=== PATIENT | female | born 1980 | race Two or more races ===

== ENCOUNTER 2019-03-23 18:06 | Emergency (ER) | payer SELFPAY ==
[2019-03-23 18:22] VITALS: BP 133/82; PULSE 98; TEMP 97.6; BMI 24.5
--- NOTE | 2019-03-23 19:49 | PDOC ---
History of Present Illness - General Chief Complaint: Pain, Acute Stated Complaint: ABD PAIN/NAUSEA Time Seen by Provider: 03/23/19 19:00 - History of Present Illness Initial Comments: Ms. Cameron is a 38 y/o female with no reported PMH presenting today with abdominal pain. Reports that the abdominal pain started around two days ago. Reports that the pain is intermittent. Denies anything makes it better or worse. Describes the pain as starting in the RLQ and radiates to the suprapubic and LLQ areas. Denies fever or chills. Reports nausea without vomiting. Denies diarrhea or constipation. Denies blood in the stool. Denies dysuria/hematuria. Reports that she is able to tolerate PO Denies chest pain/shortness of breath. Denies headache. Reports that she has had the pain for the past several years, and has been seen at hospitals in [place], but is unsure of the diagnosis. She also reports that she was given courses of antibiotics approx. once every 6 months (possibly amoxicillin, but is unsure). SurgHx: denies prior abdominal or pelvic surgeries SocHx: recently moved here from [place] at the end of February LNMP: Feb.15 Past History - Past Medical History Allergies/Adverse Reactions: Allergies Allergy/AdvReac Type Severity Reaction Status Date / Time eggplant Allergy Verified 03/23/19 18:23 DUST MITES Allergy Uncoded 03/23/19 18:23 Home Medications: Ambulatory Orders NK [No Known Home Medication] 03/23/19 COPD: No - Psycho Social/Smoking Cessation Hx Smoking History: Never smoked Hx Alcohol Use: No Drug/Substance Use Hx: No Review of Systems - Review of Systems Comments:: GENERAL/CONSTITUTIONAL: No fever or chills. No weakness._ HEAD, EYES, EARS, NOSE AND THROAT: No change in vision. No change in hearing. No sore throat._ CARDIOVASCULAR: No chest pain or shortness of breath_ RESPIRATORY: Denies cough, hemoptysis_ GASTROINTESTINAL: Reports abdominal pain and nausea. Denies vomiting, diarrhea or constipation._ GENITOURINARY: No dysuria, frequency, or change in urination._ MUSCULOSKELETAL: No joint or muscle swelling or pain. No neck or back pain._ SKIN: No rash_ NEUROLOGIC: No headache, vertigo, loss of consciousness, or change in strength/ sensation._ ENDOCRINE: No increased thirst. No abnormal weight change_ HEMATOLOGIC/LYMPHATIC: No anemia, easy bleeding, or history of blood clots._ ALLERGIC/IMMUNOLOGIC: No hives or skin allergy._ *Physical Exam - Vital Signs Last Vital Signs Temp Pulse Resp BP Pulse Ox 97.6 F 98 H 16 133/82 100 03/23/19 18:20 03/23/19 18:20 03/23/19 18:20 03/23/19 18:20 03/23/19 18:20 - Physical Exam GENERAL: Awake, alert, and oriented to person/place/time, in no acute distress_ HEAD: No signs of trauma, normocephalic, atraumatic _ EYES: PERRLA, EOMI, sclera anicteric, conjunctiva clear_ ENT: Hearing grossly normal, nares patent, oropharynx clear without exudates. No uvular deviation. Moist mucosa_ NECK: Normal ROM, supple, no lymphadenopathy, JVD, or masses_ LUNGS: No distress, speaks in full sentences, clear to auscultation bilaterally _ HEART: Regular rate and rhythm, normal S1 and S2, no murmurs appreciated, peripheral pulses normal and equal bilaterally._ ABDOMEN: Soft, mild TTP RLQ, normoactive bowel sounds. No guarding, no rebound. No masses. Rovsing's sign negative. Iliopsoas sign negative. Obturator sign negative. BACK: No CVA tenderness. EXTREMITIES: Normal inspection, Normal range of motion, no edema. No clubbing or cyanosis_ NEUROLOGICAL: Cranial nerves II through XII grossly intact. Normal speech, normal gait, no focal sensorimotor deficits _ SKIN: Warm, Dry, normal turgor, no rashes or lesions noted_ ED Treatment Course - LABORATORY CBC & Chemistry Diagram: 03/23/19 20:45 03/23/19 20:45 Medical Decision Making - Medical Decision Making 38F presenting with RLQ abdominal pain for the past two days. -cbc, cmp, lipase, serum preg -ua, ucx -tvus 03/23/19 21:33 Labs reviewed. Laboratory Tests 03/23/19 03/23/19 03/23/19 20:45 20:45 20:45 WBC 12.8 H RBC 4.36 Hgb 11.3 Hct 35.9 MCV 82.3 MCH 26.0 MCHC 31.6 L RDW 18.4 H Plt Count 306 MPV 8.1 Absolute Neuts (auto) 10.1 H Neutrophils % 78.7 Lymphocytes % 14.9 Monocytes % 5.6 Eosinophils % 0.1 Basophils % 0.7 Nucleated RBC % 0 Sodium 138 Potassium 4.4 Chloride 106 Carbon Dioxide 25 Anion Gap 7 L BUN 8.4 Creatinine 0.9 Est GFR (CKD-EPI)AfAm 93.35 Est GFR (CKD-EPI)NonAf 80.54 Random Glucose 94 Calcium 9.0 Total Bilirubin 0.2 AST 14 L ALT 17 Alkaline Phosphatase 56 Creatine Kinase Troponin I Total Protein 7.3 Albumin 3.6 Lipase Serum , Qual Urine Color Yellow Urine Appearance Clear Urine pH 7.0 Ur Specific [place] 1.008 L Urine Protein Negative Urine Glucose (UA) Negative Urine Ketones Negative Urine Blood Negative Urine Nitrite Negative Urine Bilirubin Negative Urine Urobilinogen 0.2 Ur Leukocyte Esterase Trace Urine WBC (Auto) 1 Urine RBC (Auto) 1 Urine Casts (Auto) 0 U Epithel Cells (Auto) 5.6 Urine Bacteria (Auto) 56.4 03/23/19 03/23/19 03/23/19 20:45 20:45 20:45 WBC RBC Hgb Hct MCV MCH MCHC RDW Plt Count MPV Absolute Neuts (auto) Neutrophils % Lymphocytes % Monocytes % Eosinophils % Basophils % Nucleated RBC % Sodium Potassium Chloride Carbon Dioxide Anion Gap BUN Creatinine Est GFR (CKD-EPI)AfAm Est GFR (CKD-EPI)NonAf Random Glucose Calcium Total Bilirubin AST ALT Alkaline Phosphatase Creatine Kinase 57 Troponin I < 0.02 Total Protein Albumin Lipase 206 Serum , Qual Positive Urine Color Urine Appearance Urine pH Ur Specific [place] Urine Protein Urine Glucose (UA) Urine Ketones Urine Blood Urine Nitrite Urine Bilirubin Urine Urobilinogen Ur Leukocyte Esterase Urine WBC (Auto) Urine RBC (Auto) Urine Casts (Auto) U Epithel Cells (Auto) Urine Bacteria (Auto) 03/23/19 23:01 TVUS shows single intra-uterine c/w patient's LNMP with no signs of torsion or ectopic . Beta HCG c/w pt LNMP. 03/24/19 00:15 Pt reassessed. Reports minimal right lower pelvic pain. No RLQ pain at rest. Plan to d/c home with OBGYN follow up. Return precautions discussed. All questions answered. Patient expressed understanding and agreement with plan. Per patient request, options and resources were provided. Discharge - Discharge Information Problems reviewed: Yes Clinical Impression/Diagnosis: Qualifiers: Weeks of gestation: less than 8 weeks Qualified Code(s): Z3A.01 - Less than 8 weeks gestation of Condition: Stable Disposition: HOME - Admission No - Follow up/Referral Referrals: Marisa Reyes DO [Staff Physician] - - Patient Discharge Instructions Additional Instructions: Please make a follow up appointment with an OBGYN (a referral has been provided for you here). If you experience any new, worsening, or concerning symptoms, including severe abdominal pain, fever/chills, severe nausea/vomiting and inability to keep down fluids, blood in the vomit or stool, or any other concerns, please return to the emergency department. - Post Discharge Activity
[2019-03-23 20:51] LABS: BASO % 0.7 % (0-2.0); EOS % 0.1 % (0-4.5); HEMATOCRIT 35.9 % (32.4-45.2); HEMOGLOBIN 11.3 GM/dL (10.7-15.3); LYMPH % 14.9 % (8-40); MCHC 31.6 g/dl (32.0-36.0); MEAN CELL VOLUME 82.3 fl (80-96); MEAN PLT VOLUME 8.1 fl (7.5-11.1); MONO % 5.6 % (3.8-10.2); NEUT % 78.7 % (42.8-82.8); PLATELET COUNT 306 K/MM3 (134-434); RBC 4.36 M/mm3 (3.60-5.2); RDW 18.4 % (11.6-15.6); WHITE BLOOD COUNT 12.8 K/mm3 (4.0-10.0)
--- NOTE | 2019-03-23 20:52 | PDOC ---
Documentation entered by Dina Grijalva SCRIBE, acting as scribe for Neo Mccarty MD. Neo Mccarty MD: This documentation has been prepared by the Rudi esqueda Xhesika, SCRIBE, under my direction and personally reviewed by me in its entirety. I confirm that the documentation accurately reflects all work, treatment, procedures, and medical decision making performed by me. Attending Attestation - Resident Resident Name: RiceTimoteo - ED Attending Attestation I have performed the following: I have examined & evaluated the patient, The case was reviewed & discussed with the resident, I agree w/resident's findings & plan, Exceptions are as noted - HPI HPI: 03/23/19 20:09 The patient is a 38 year old female with no significant past medical history who presents to the ED with intermittent RLQ abdominal pain radiating to her suprapubic region for the past couple of months. Pt reports associated nausea but no vomiting. Patient reports she moved from [place] a month ago. The patient denies chest pain, shortness of breath, headache and dizziness. Denies fever, chills, cough, diarrhea and constipation. Allergies: eggplant, dust mites - Physicial Exam PE: 03/23/19 20:49 Patient regular, well-nourished, no distress RRR, Right lower pelvic/rlq tenderness CTA PERRLA, EOMI No normocephalic and atraumatic - Medical Decision Making 03/23/19 20:52 38-year-old female presents with atraumatic right lower quadrant and right lower pelvic pain differential diagnosis includes UTI versus ectopic vs ovarian torsion versus ovarian cyst versus colitis versus diverticulitis versus appendicitis. Will obtain CBC/uppercase/brace/urine . Will obtain transvaginal ultrasound to rule out torsion. Will consider CT of abdomen pelvis. Will reassess. 03/24/19 00:15 Patient reassessed. Patient is resting comfortably, with minimal right lower pelvic tenderness to deep palpation only. There is no tenderness at McBurney' s. Transvaginal ultrasound shows a IUP at 6 weeks with FHR. I do not suspect acute appendicitis at this time. Will discharge the patient with [facility] for care and abdominal pains immediately if the pain worsens or localizes
[2019-03-23 20:55] LABS: EPI CELLS 5.6 /HPF (0-5/HPF); HYALINE CASTS 0 /lpf (0-8); URINE APPEARANCE CLEAR; URINE BACTERIA 56.4 /hpf (NEGATIVE); URINE BILIRUBIN NEGATIVE (NEGATIVE); URINE COLOR YELLOW; URINE GLUCOSE (UA) NEGATIVE (NEGATIVE); URINE KETONE NEGATIVE (NEGATIVE); URINE LEUK ESTERASE TRACE (NEGATIVE); URINE NITRITE NEGATIVE (NEGATIVE); URINE PROTEIN NEGATIVE (NEGATIVE); URINE RBC 1 /hpf (0-4); URINE UROBILINOGEN 0.2 mg/dL (0.2-1.0); URINE WBC 1 /hpf (0-5)
[2019-03-23 21:21] LABS: ALBUMIN 3.6 g/dl (3.4-5.0); BILIRUBIN,TOTAL 0.2 mg/dL (0.2-1); BLOOD UREA NITROGEN 8.4 mg/dL (7-18); CREATININE 0.9 mg/dL (0.55-1.3); POTASSIUM 4.4 mmol/L (3.5-5.1); TOT PROT 7.3 g/dl (6.4-8.2)
== END 2019-03-24 00:27 | disposition home or self-care (01) ==
LOC: JER 18:06
DX: Z3A.01 Less than 8 weeks gestation of pregnancy (principal); Z91.018 Allergy to other foods; Z91.09 Other allergy status, other than to drugs and biological substances
CPT/HCPCS: 36415; 76817-TC; 80053; 81003; 82550; 83690; 84484; 84702; 84703; 85025; 87086; 99282-25